=== PATIENT | male | born 1950 | race Caucasian/White ===

== ENCOUNTER 2017-07-28 13:55 | Emergency (ER) | payer MEDICARE, BC ==
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
== END 2017-07-28 15:20 | disposition home or self-care (01) ==
LOC: SCSER 13:55
DX: S01.112A Laceration without foreign body of left eyelid and periocular area, initial encounter (principal); J45.909 Unspecified asthma, uncomplicated; Z87.891 Personal history of nicotine dependence; Y04.0XXA Assault by unarmed brawl or fight, initial encounter
CPT/HCPCS: 12011; 70450; 70486

== ENCOUNTER 2018-06-04 11:11 | Outpatient (CLI) | payer MEDICARE, BC ==
--- NOTE | 2018-06-04 14:15 | MRI ---
MRI RIGHT KNEE WITHOUT CONTRAST: Date: 06/04/18 HISTORY: Tear of medial cartilage meniscus of the knee. COMPARISON: Right knee MRI from 2014. FINDINGS: Medial Meniscus: There are two separate radial tears of the posterior horn of the medial meniscus, first at the human resource advisor ior root attachment which is a full thickness tear with a small amount of granulation tissue attempti ng to bridge the tear occurring 5 mm from the footprint, and there is a second incomplete radial tear of the posterior horn/body junction extending from the free edge of the white and intermediate zones . Moderate degenerative disease at the medial meniscal body. There is 2 mm medial gutter extrusion. Lateral Meniscus: Undersurface chronic flap tear of the body and posterior horn lateral meniscus with some loss of volu me. The ACL, PCL, MCL, and LCL are all intact. Extensor Mechanism: Quadriceps tendon, patella, and patellar tendon are all intact. Cartilage: Patellofemoral compartment: Multifocal full thickness cartilage fissures of the patellar apex with s ubcortical reactive marrow changes. Medial compartment: Mild chondral fraying, Grade I, without full thickness cartilage loss. Lateral compartment: There is a full thickness cartilage fissure with subcortical reactive change of the medial aspect of the weightbearing surface of lateral tibial plateau. Muscles: Muscle signal and bulk normal. Soft Tissues: Large joint effusion. IMPRESSION: 1. Two separate radial tears of the medial meniscus, first being a full thickness tear 5 mm from the footprint posterior horn, which is a radial oblique tear, and the second is an incomplete radial tea r of the posterior horn/body junction extending from the free edge to the white and intermediate zone . There is 2 mm medial gutter extrusion of the medial meniscal body with moderate degenerative signal . 2. Chronic undersurface flap tear of the lateral meniscal body and posterior horn. 3. Moderate joint effusion. 4. 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 5. Predominantly Grade II chondromalacia of the medial compartment. POS: [facility]
== END 2018-06-04 11:12 | disposition home or self-care (01) ==
LOC: MRI 11:11
PROVIDERS: ATTEND Orthopaedic Surgery
DX: S83.241A Other tear of medial meniscus, current injury, right knee, initial encounter (principal); S83.281A Other tear of lateral meniscus, current injury, right knee, initial encounter; M25.461 Effusion, right knee; M22.41 Chondromalacia patellae, right knee

== ENCOUNTER 2018-06-21 09:24 | Emergency (ER) | payer MEDICARE, BC | END 2018-06-21 10:14 | disposition home or self-care (01) | LOC: SCSER 09:24 | DX: J06.9 Acute upper respiratory infection, unspecified (principal); J45.909 Unspecified asthma, uncomplicated; Z87.891 Personal history of nicotine dependence; K74.60 Unspecified cirrhosis of liver | CPT/HCPCS: 99283 ==

== ENCOUNTER 2019-06-29 08:53 | Emergency (ER) | payer MEDICARE, BC ==
--- NOTE | 2019-06-29 11:52 | RAD ---
PA AND LATERAL CHEST: Date: 06/29/19 HISTORY: Cough. FINDINGS: Heart size and mediastinum are within normal limits. There are some atherosclerotic changes of the ao rta. There is some mild elevation of the right hemidiaphragm. There is some minimal linear scarring i n the right base. IMPRESSION: No active intrathoracic disease. POS: [facility]
== END 2019-06-29 10:46 | disposition home or self-care (01) ==
LOC: SCSER 08:53
DX: J06.9 Acute upper respiratory infection, unspecified (principal); J45.909 Unspecified asthma, uncomplicated; Z87.891 Personal history of nicotine dependence
CPT/HCPCS: 71046

== ENCOUNTER 2020-04-14 07:15 | Outpatient (CLI) | payer MEDICARE, OTHER ==
--- NOTE | 2020-04-14 07:52 | ULT ---
Exam: Abdominal aorta ultrasound HISTORY: Abdominal aorta is aneurysm screening TECHNIQUE: Grayscale, color flow, Doppler imaging and spectral waveform analysis of the aorta FINDINGS: Proximal aorta: 1.8 x 1.9 x 1.9 cm Mid aorta: 1.7 x 1.7 x 1.6 cm Distal aorta: 1.7 x 1.7 x 1.6 Patent aorta and left and right iliac arteries IMPRESSION: No evidence of aneurysm.
== END 2020-04-14 07:16 | disposition home or self-care (01) ==
LOC: BICULT 07:15
PROVIDERS: ATTEND Internal Medicine
DX: Z13.6 Encounter for screening for cardiovascular disorders (principal)
CPT/HCPCS: 76775

== ENCOUNTER 2020-05-11 07:26 | Outpatient (CLI) | payer MEDICARE, OTHER ==
--- NOTE | 2020-05-11 08:03 | ULT ---
Hepatic sonogram with duplex evaluation HISTORY: Cirrhosis. COMPARISON: 08/18/2019. FINDINGS: Gallbladder wall polyps described on prior studies not well visualized on today's exam. No stones apparent. Common duct is 0.4 cm. Liver has a heterogeneous echotexture without focal mass or intrahepatic biliary dilatation. No free fluid. Spleen measures up to 9.0 cm with a normal appearance. Good color and spectral Doppler flow within the abdominal aorta, hepatic and splenic arteries. Portal venous flow is towards the liver. Hepatic venous flow is towards the IVC. IMPRESSION : No findings of portal venous hypertension or other significant abnormalities.
== END 2020-05-11 07:27 | disposition home or self-care (01) ==
LOC: BICULT 07:26
PROVIDERS: ATTEND Physician Assistant Medical
DX: K74.60 Unspecified cirrhosis of liver (principal)
CPT/HCPCS: 76705

== ENCOUNTER 2020-11-15 08:31 | Outpatient (CLI) | payer MEDICARE, OTHER | END 2020-11-15 08:32 | disposition home or self-care (01) | LOC: BICULT 08:31 | PROVIDERS: ATTEND Physician Assistant Medical | DX: K74.60 Unspecified cirrhosis of liver (principal) | CPT/HCPCS: 76705 ==

== ENCOUNTER 2021-09-04 07:39 | Outpatient (CLI) | payer MEDICARE, OTHER | END 2021-09-04 07:40 | disposition home or self-care (01) | LOC: BICULT 07:39 | PROVIDERS: ATTEND Physician Assistant Medical | DX: K74.60 Unspecified cirrhosis of liver (principal); R93.2 Abnormal findings on diagnostic imaging of liver and biliary tract | CPT/HCPCS: 76705 ==

== ENCOUNTER 2023-05-16 10:39 | Outpatient (CLI) | payer MEDICARE, OTHER | END 2023-05-16 10:40 | disposition home or self-care (01) | LOC: BICULT 10:39 | PROVIDERS: ATTEND Internal Medicine | DX: R59.0 Localized enlarged lymph nodes (principal) | CPT/HCPCS: 76536 ==

== ENCOUNTER 2023-05-24 08:40 | Outpatient (CLI) | payer MEDICARE, OTHER ==
[2023-05-24] MEDS ORDERED: Iopamidol 370 76% 100 ML VIAL ONE (13:58)
== END 2023-05-24 08:41 | disposition home or self-care (01) ==
LOC: BICCT 08:40
PROVIDERS: ATTEND Internal Medicine
DX: R59.0 Localized enlarged lymph nodes (principal); J35.8 Other chronic diseases of tonsils and adenoids
CPT/HCPCS: 70491; 82565; Q9967

== ENCOUNTER 2023-06-13 12:30 | Outpatient (CLI) | payer MEDICARE, OTHER | END 2023-06-13 12:31 | LOC: PET 12:30 | PROVIDERS: ATTEND Internal Medicine Hematology & Oncology | DX: C01 Malignant neoplasm of base of tongue (principal); C77.0 Secondary and unspecified malignant neoplasm of lymph nodes of head, face and neck | CPT/HCPCS: 78815; A9552 ==

== ENCOUNTER 2023-07-11 10:44 | Outpatient (CLI) | payer MEDICARE, OTHER | END 2023-07-11 10:45 | disposition home or self-care (01) | LOC: RAD 10:44 | PROVIDERS: ATTEND Radiology Radiation Oncology | DX: R13.19 Other dysphagia (principal); D10.5 Benign neoplasm of other parts of oropharynx | CPT/HCPCS: 74230 ==

== ENCOUNTER 2023-08-21 08:47 | Emergency (ER) | payer MEDICARE, OTHER ==
[2023-08-21 09:08] LABS: #Monocytes 0.4 thou/uL (0.11-0.59); #Neutrophils 1.9 thou/uL (1.40-6.50); %Basophils 0.4 % (0.0-1.0); %Lymphocytes 9.3 % (21.0-51.0); %Monocytes 16.3 % (0.0-10.0); %Neutrophils 73.6 % (42.0-75.0); Hematocrit 33.1 % (42.0-52.0); Hemoglobin 11.1 g/dL (14.0-18.0); Mean Corpuscular HGB CONC 33.5 g/dL (32.0-36.0); Mean Corpuscular Hemoglobin 33.8 pg (27.0-31.0); Mean Corpuscular Volume 100.9 fl (78.0-98.0); Mean Platelet Volume 9.6 fL (7.4-10.4); Platelet Count 118 10x3/uL (130-400); RBC Distribution Width 14.1 % (11.5-14.5); Red Blood Cell (RBC) Count 3.28 mill/uL (4.70-6.10); White Blood Cell (WBC) Count 2.6 10x3/uL (4.8-10.8)
[2023-08-21 09:32] LABS: Troponin I Less than 0.010 ng/mL (< 0.028)
[2023-08-21 09:34] LABS: ALT (SGPT) 22 U/L (8-55); AST (SGOT) 19 U/L (5-34); Albumin 3.6 g/dL (3.4-4.8); Alkaline Phosphatase 60 U/L (40-110); Anion Gap 17 mmol/L (10-20); BUN (Urea Nitrogen) 20 mg/dL (8.4-25.7); Bilirubin, Total 0.6 mg/dL (0.2-1.2); CK (CPK) 40 U/L (30-200); Calc. Creatinine Clearance 0 mL/min (70-130); Calcium 8.7 mg/dL (7.8-10.44); Carbon Dioxide 22 mmol/L (23-31); Chloride 103 mmol/L (98-107); Estimated GFR 74; Globulin 2.5 g/dL (2.4-3.5); Glucose 127 mg/dL (83-110); Potassium 5.5 mmol/L (3.5-5.1); Protein, Total 6.1 g/dL (5.8-8.1); Sodium 136 mmol/L (136-145)
[2023-08-21 10:06] LABS: CellaVision Operator ID LAB.KW3; Macrocytosis SLIGHT = 6-15 cells HPF (0-5); Platelet Adequacy Comment Platelets Decreased; Polychromasia SLIGHT = 2-3 cells HPF (0-2)
== END 2023-08-21 12:49 | disposition home or self-care (01) ==
LOC: ERS 08:47
DX: E86.0 Dehydration (principal); R55 Syncope and collapse; W18.11XA Fall from or off toilet without subsequent striking against object, initial encounter; Y93.01 Activity, walking, marching and hiking; Y92.002 Bathroom of unspecified non-institutional (private) residence as the place of occurrence of the external cause; Z87.891 Personal history of nicotine dependence
CPT/HCPCS: 70450; 71045; 80053; 82550; 84484; 85025; 93005; 96360

== ENCOUNTER 2023-12-12 07:51 | Outpatient (CLI) | payer MEDICARE, OTHER | END 2023-12-12 07:52 | disposition home or self-care (01) | LOC: BICRAD 07:51 | PROVIDERS: ATTEND Internal Medicine Rheumatology | DX: M25.541 Pain in joints of right hand (principal); M25.542 Pain in joints of left hand; M18.0 Bilateral primary osteoarthritis of first carpometacarpal joints ==

== ENCOUNTER 2024-05-29 08:55 | Outpatient (CLI) | payer MEDICARE, OTHER ==
[2024-05-29] MEDS ORDERED: Iopamidol 370 76% 100 ML VIAL ONE (11:29)
== END 2024-05-29 08:56 | disposition home or self-care (01) ==
LOC: CT 08:55
PROVIDERS: ATTEND Radiology Radiation Oncology
DX: C01 Malignant neoplasm of base of tongue (principal); K74.60 Unspecified cirrhosis of liver
CPT/HCPCS: 36415; 70491; 71260; 82565; Q9967

== ENCOUNTER 2024-12-17 11:21 | Outpatient (CLI) | payer MEDICARE, OTHER | END 2024-12-17 11:22 | disposition home or self-care (01) | LOC: BICRAD 11:21 | PROVIDERS: ATTEND Radiology Radiation Oncology | DX: R91.8 Other nonspecific abnormal finding of lung field (principal) | CPT/HCPCS: 71046 ==

== ENCOUNTER 2025-04-07 08:06 | Outpatient (CLI) | payer MEDICARE, OTHER | END 2025-04-07 08:07 | disposition home or self-care (01) | LOC: CT 08:06 | PROVIDERS: ATTEND Internal Medicine Critical Care Medicine | DX: J18.9 Pneumonia, unspecified organism (principal); R91.8 Other nonspecific abnormal finding of lung field | CPT/HCPCS: 71250 ==